=== PATIENT | male | born 1980 | race Caucasian/White ===

== ENCOUNTER → 2017-04-14 | Emergency (ER) | payer BC ==
[~2017-04-14] VITALS: Ht 188 cm; Wt 114.9 kg
[~2017-04-14] MED LIST: KEFLEX500 MG PO; ZANTAC25 MG/1 ML
== END | disposition home or self-care (01) ==
LOC: FSED 19:48
DX: S61.011A Laceration without foreign body of right thumb without damage to nail, initial encounter (principal); W26.0XXA Contact with knife, initial encounter; Y92.008 Other place in unspecified non-institutional (private) residence as the place of occurrence of the external cause; I10 Essential (primary) hypertension
CPT/HCPCS: 99284